=== PATIENT | female | born 1945 | race Caucasian/White ===

== ENCOUNTER 2017-07-25 11:14 | Emergency (ER) | payer OTHER ==
--- NOTE | 2017-07-25 11:59 | EDPHY ---
H & P Time Seen by Provider: 07/25/17 11:27 HPI/ROS: HPI Right hip pain. 72-year-old female by private vehicle. This patient complains of ongoing right lateral hip pain for about the last month. She reports that she is from [place]. She reports that her mother has been here in assisted living an recently . She tells me that she has a sister with Parkinson's disease who is wheelchair-bound. She has been here in [place] assisting with her mother. She reports that she has to help her sister get in and out of her wheelchair and when doing this and bending over from the hips this is when she 1st noticed this pain to the lateral aspect of her right hip about a month ago. She has seen an habilitation training specialist to his told her she has some arthritis in her right hip. She has tried Flexeril as well as ibuprofen with limited relief. She presents the emergency department complaining of this right lateral hip pain in the area of her greater trochanter which is worse with bending over from the hips and trying to straighten back up. No history of fall or trauma. ROS: Constitutional: No fever, no chills. No weakness. Musculoskeletal: As above. Skin: No rashes. Neurological: No focal weakness or altered sensation. Past medical history: Eye surgery. Social history: Nonsmoker. Here by herself. As above. Physical Exam: General Appearance: Alert, no distress. This patient is responding to questions appropriately and in full sentences. This patient appears well- hydrated and well-nourished. Right hip exam: Some vague tenderness on palpation over the superior posterior aspect of the greater trochanter. No soft tissue swelling, edema, erythema, ecchymosis noted. No warmth of the with this area. No bony deformity or step- off noted. No pain on axial compression of the right hip as well as passive and active ranging of motion in all planes of the right hip. The right lower extremity is neurovascularly intact. Neurological: Motor sensory function is grossly intact. Cranial nerves are normal. Gait is normal. Skin: Warm and dry, no rashes. Extremities are symmetrical. All joints range without pain or impingement. Except noted Psychiatric: No agitation. No depression. Database: EKG: Imaging: Right hip x-ray series: Negative for fracture, subluxation, dislocation. Interpreted by me. Procedures: Emergency department course: Vital signs reviewed. The patient is moderately hypertensive. Vital signs otherwise normal. Her presentation is consistent with a trochanteric bursitis. Treatment recommendations will include high-dose ibuprofen for the next 3 days and referral to a physical therapist for stretching and strengthening exercises. I will also give her some general instructions on exercises and stretches she can do. This was discussed with the patient. Follow-up was thoroughly reviewed. Return to emergency department precautions reviewed. All of her questions were answered. She was discharged in good condition. Differential Diagnosis: The differential diagnosis on this patient includes but is not limited to trochanteric bursitis. Iliotibial band syndrome, septic hip joint, fracture, subluxation, dislocation of the right hip unlikely. This represents a partial list of diagnoses considered. These considerations are based on history, physical exam, past history, reassessment and diagnostic testing. Smoking Status: Former smoker Constitutional: Initial Vital Signs Temperature (C) 36.5 C 07/25/17 11:24 Heart Rate 90 07/25/17 11:24 Respiratory Rate 18 07/25/17 11:24 Blood Pressure 166/123 H 07/25/17 11:24 O2 Sat (%) 94 07/25/17 11:24 O2 Delivery Mode Room Air Allergies/Adverse Reactions: Sulfa (Sulfonamide Antibiotics) Allergy (Verified 08/30/13 11:11) Home Medications: Medication Instructions Recorded Ambien 5MG (RX) 08/30/13 Clotrimazole 1% [[id number]] 7 cinthia VG HS #1 cream 08/30/13 LORAZEPAM 08/30/13 Departure - Departure Disposition: Home, Routine, Self-Care Clinical Impression: Trochanteric bursitis of right hip Condition: Good Instructions: Hip Bursitis (ED) Additional Instructions: Read and follow provided instructions. Follow provided instructions on exercises and stretches. Follow-up with your primary care physician in 1-2 days for re-evaluation and referral to a physical therapist for further management. Ibuprofen dosin mg every 6 hours with meals for the next 3 days only. Take only as needed for pain. Return to the emergency department for worsening symptoms or other serious concerns. Referrals: ADRI BENNETT [Other] - As per Instructions
[2017-07-25 12:24] VITALS: BP 163/106
== END 2017-07-25 12:22 | disposition home or self-care (01) ==
LOC: CED 11:14
DX: M70.61 Trochanteric bursitis, right hip (principal); Z87.891 Personal history of nicotine dependence
CPT/HCPCS: 73502-PO